=== PATIENT | female | born 1960 | race Caucasian/White ===

== ENCOUNTER 2020-12-02 15:30 | Outpatient (REF) | payer OTHER, SELFPAY ==
--- NOTE | ~2020-12-02 | MM_ITS ---
EXAMINATION: MM SCREENING DIGITAL BREAST TOMOSYNTHESIS, BILATERAL CLINICAL INFORMATION: Screening. Asymptomatic. The lifetime risk of breast cancer based on the Tyrer-Cuzick Model is 9.7%. COMPARISON: Mammography: November 27, 2019 and studies dating back to November 27, 2013 TECHNIQUE: Digital breast tomosynthesis is performed in both the craniocaudal and mediolateral oblique views along with computer-aided detection (CAD). Synthesized 2D images are generated from the tomosynthesis. FINDINGS: There are scattered areas of fibroglandular density (ACR BI-RADS breast composition Category b). There are no significant masses, abnormal calcifications, or other abnormalities. Stable region of asymmetric breast parenchyma seen upper outer aspect of the right breast. MM/MM tomosynthesis screening BI IMPRESSION: There are no significant changes from prior study. ASSESSMENT: BI-RADS 1: Negative RECOMMENDATION: Routine annual mammography screening. This patient's information was entered into a reminder system with a target due date for their next mammogram.
== END 2020-12-02 15:31 | disposition home or self-care (01) ==
LOC: HO.MAMMO 15:30
PROVIDERS: PCP Internal Medicine; Visit Provider Internal Medicine
DX: Z12.31 Encounter for screening mammogram for malignant neoplasm of breast (principal)
CPT/HCPCS: 77063; 77067

== ENCOUNTER 2022-07-11 14:07 | Outpatient (REF) | payer OTHER, SELFPAY ==
--- NOTE | ~2022-07-11 | MM_ITS ---
EXAMINATION: MM SCREENING DIGITAL BREAST TOMOSYNTHESIS, BILATERAL CLINICAL INFORMATION: Screening. Asymptomatic. The lifetime risk of breast cancer based on the Tyrer-Cuzick Model is 10%. COMPARISON: Mammography: 12/02/2020, 11/27/2019, 11/21/2018; outside mammography 12/20/1915 ([facility]) TECHNIQUE: Digital breast tomosynthesis is performed in both the craniocaudal and mediolateral oblique views along with computer-aided detection (CAD). Synthesized 2D images are generated from the tomosynthesis. FINDINGS: There are scattered areas of fibroglandular density (ACR BI-RADS breast composition Category b). Parenchymal pattern is similar to prior studies. Parenchymal asymmetry mid upper outer right breast is stable. There is no developing density or interval mass or architectural abnormality. No abnormal calcifications. There is an intramammary node again seen posterior upper outer right breast. Axillary nodes are stable with chronic calcifications similar to prior studies. MM/MM tomosynthesis screening BI IMPRESSION: No significant changes from prior studies. ASSESSMENT: BI-RADS 2: Benign RECOMMENDATION: Routine annual mammography screening. This patient's information was entered into a reminder system with a target due date for their next mammogram.
== END 2022-07-11 14:08 | disposition home or self-care (01) ==
LOC: HO.MAMMO 14:07
PROVIDERS: Absent Provider Internal Medicine; Visit Provider Internal Medicine
DX: Z12.31 Encounter for screening mammogram for malignant neoplasm of breast (principal)
CPT/HCPCS: 77063; 77067

== ENCOUNTER 2024-12-30 13:57 | Outpatient (REF) | payer OTHER, SELFPAY ==
--- OUTSIDE RECORDS SUMMARY | 2024-12-30 15:44 | XMS_ITS | Patient Health Record ---
Author Organization [facility] Address [address] [place] [address] Care Team Providers Care Teaching Artist Name Role Phone Huy Jorge MD Primary Care Provider UnavailJam Davidson Jr Reason For Referral No Information Medications Medication SIG (Take, Route, Frequency, Duration) Notes Start Date End Date Status Folic Acid Active Lisinopril Active Methotrexate 2.5 MG Orally 4 a wees Active Humira as directed Subcutaneous Active Atorvastatin Calcium 1 tablet Orally Once a day Active Colyte with Flavor Packs 240 GM As directed Orally Over the specified time. for 1 day(s) 02/06/2019 Active buPROPion HCl Active Advil 200 MG 1 capsule with food or milk as needed Orally as needed Active Wellbutrin Active Immunizations Vaccine Route Administration Date Status Comme nts Influenza Unknown 02/06/2019 Refused Problems Problem Type SNOMED Code ICD Code Onset Dates Problem Status W/U Status Risk Notes Problem 725586920 Colon cancer screening (Z12.11) Active confirmed Problem 168281123 medical terminologist (current) use of non-steroidal anti-inflammatorie s (NSAID) (Z79.1) Active confirmed Problem 702075910 Encounter for other preprocedural examination (Z01.818) Active confirmed Plan Of Treatment Future Test Test Name Order Date COLONOSCOPY 02/29/2012 COLONOSCOPY 02/06/2019 Next Appt Details Provider Name:Jam carlson Jr, 03/19/2025 10:40:00 AM, [address], [address], [place], [address], Insurance Providers Payer Name Payer Address Payer Phone Subscriber Number Group Number Insured Name Patient Relationship to Insured Coverage Start Date Coverage End Date [employer] [address] [address] [place] [address] [id number] JAYY KOLB Self - patient is the insured Medical (General) History Medical History History ICD Code Rheumatoid arthritis Hypertension elevated Cholesterol Reflux Disease colonoscopy 04/13/12, tubular adenoma x1. Followup in 5 years anxiety/depression Surgical History Surgery Date(Month/Year)
== END 2024-12-30 13:58 | disposition home or self-care (01) ==
LOC: HO.MAMMO 13:57
PROVIDERS: Absent Provider Internal Medicine; PCP Internal Medicine; Referring Provider Internal Medicine; Visit Provider Internal Medicine
DX: Z12.31 Encounter for screening mammogram for malignant neoplasm of breast (principal)
CPT/HCPCS: 77063; 77067

== ENCOUNTER → 2024-12-30 14:15 | Outpatient (BNV) | payer OTHER, SELFPAY | PROVIDERS: Absent Provider Internal Medicine; PCP Internal Medicine; Referring Provider Internal Medicine; Visit Provider Internal Medicine | DX: Z12.31 Encounter for screening mammogram for malignant neoplasm of breast (principal) | CPT/HCPCS: 77063; 77067 ==

== ENCOUNTER 2025-04-15 07:13 | Day surgery (SDC) | payer MEDICARE, OTHER, SELFPAY ==
--- OUTSIDE RECORDS SUMMARY | 2025-03-19 06:40 | XMS_ITS ---
Author Organization [facility] Address [address] [place] [id number] Care Team Providers Care Dry Heat Room Attendant Name Role Phone Huy Jorge MD Primary Care Provider UnavailJam Davidson Jr Unavailable [phone] Allergies No Known Allergies REASON FOR VISIT Patient presents today for a SCREENING COLON, RELUX Medications Medication SIG (Take, Route, Fr equency, Duration) Notes Start Date End Date Status buPROPion HCl Active Humira as directed Subcutaneous Active Wellbutrin Active Folic Acid Active Methotrexate 2.5 MG Orally 4 a wees Active Immunizations Vaccine Route Administration Date Status Comme nts Influenza Unknown 03/19/2025 Refused Vital Signs Temperature 95.9 degrees Fahrenheit 03/19/20 25 Blood pressure systolic 001 mm Hg 03/19/20 25 Blood pressure diastolic 01 mm Hg 025 Height 62 in 03/19/2025 Weight 210.2 lbs 03/19/2025 BMI 38.44 kg/m2 03/19/2025 Encounters Encounter Location Date Provider Diagnosis [facility] [address] [place] [id number] 03/19/2025 Jam Vasquez Jr Colon cancer screening Z12.11 Assessments Encounter Date Diagnosis (ICD Code) Assessment Notes Treatment Notes Treatment Clinical Notes Section Notes 03/19/2025 Colon cancer screening (ICD-10 - Z12.11) Plan Of Treatment Future Test Test Name Order Date COLONOSCOPY 03/19/2025 Next Appt Details Provider Name:Jam carlson Jr, 04/15/2025 08:20:00 AM, [address] [place] [address], [id number], Progress Notes * ODETTE KOLBOB: 1 (64 yo F)Acc No.[id number]:03/19/2025 Progress Notes Patient: JAYY JAMIL Provider: Mary Ellen Vasquez MD :1960 A ge:64 Y S ex:Female Date:03/19/2025 Address:[address] [place], [place] [id number] Pcp:Huy Jorge MD Subjective: * Chief Complaints: * 1 . Patient presents today for a SCREENING COLON, RELUX. * Medical History: R heumatoid arthritis, Hypertension, elevated Cholesterol, Reflux Disease, colonoscopy 04/13/12, tubular adenoma x1. Followup in 5 years, Anxiety/depression. * Family History: F ather: . M other: 88 yrs, diagnosed with HTN (hypertension). no known hx of colon cancer polyps. No family history of liver cancer. * Social History: T obacco Use: T obacco Use/Smoking A re you a: former smoker , How long has it been since you last smoked?: > 10 years. D rugs/Alcohol: A lcohol Screen P oints: 0, Interpretation: Negative. M iscellaneous: M arital status: . Occupation: Home. * Medications: T aking Folic Acid , Taking Methotrexate 2.5 MG Tablet Orally 4 a wees , Taking Humira as directed Subcutaneous , Taking buPROPion HCl , Taking Wellbutrin , Discontinued Lisinopril , Discontinued Atorvastatin Calcium 1 tablet Orally Once a day , Discontinued Advil 200 MG Capsule 1 capsule with food or milk as needed Orally as needed , Medication List reviewed and reconciled with the patient * Allergies: N .K.D.A. Objective: * Vitals: W t: 210.2 lbs, Ht: 62 in, BMI:38.44Index, BP: 001/01 mm Hg, Temp: 95.9, Wt-k.35. Assessment: * Assessment: 1. C olon cancer screening - Z12.11 (Primary) Plan: * Treatment: * Immunizations: Influenza (Not administered - Refused: Patient decision) * Preventive Medicine: Counseling: C are goal follow-up plan: A birdie Normal BMI Follow-up D ietary management education, guidance, and counseling, B LA management provided Y es. * * The named appointment provid er may or may not be the originator of this progress note, and it is not deemed complete until electronically signed by the appointment provider. Sign off status: Pending * Provider: Mary Ellen Vasquez MD Date: 03/19/2025 Generated for Elizabeth francis/Ashwini/Skylaritting on: 03/25/2025 02:28 PM EDT
[2025-04-11 09:29] VITALS: BMI 38.4
--- NOTE | 2025-04-14 08:51 | HO.ANESPROP2 ---
Documented by User: Dai Clark NP 04/14/25 08:51 HPI - Anesthesia Eval Consult details Narrative: 64yo F for Colonoscopy [facility] Past Medical History Medical History (Updated 04/11/25 @ 09:31 by Karen Conteh RN) Anxiety Depression Elevated cholesterol HTN (hypertension) Rheumatoid arthritis GERD (gastroesophageal reflux disease) Surgical History Surgical History (Updated 04/11/25 @ 09:31 by Karen Conteh RN) H/O colonoscopy Social History Social History (Updated 04/11/25 @ 09:32 by Karen Conteh RN) Household Members: Spouse Patient Tobacco Use Status: Former Tobacco user Tobacco use type: Cigarette Advance Directives: No Advance Directives Information Provided: Yes Meds Allergies Allergy/AdvReac Type Severity Reaction Status Date / Time No Known Allergies Allergy Verified 04/11/25 09:32 Home Medications ?Medication ?Instructions ?Recorded ?Confirmed ?Last Taken ?Type adalimumab 40 mg/0.4 mL 40 mg subcut Q2W 04/11/25 04/11/25 Unknown History subcutaneous pen kit (Humira(CF) Pen) bupropion HCl 300 mg 24 hr tablet, 300 mg PO DAILY 04/11/25 04/11/25 Unknown History extended release folic acid 1 mg tablet 1 mg PO BID 04/11/25 04/11/25 Unknown History methotrexate sodium 2.5 mg tablet 20 mg PO QWEEK 04/11/25 04/11/25 Unknown History sertraline 100 mg tablet 100 mg PO DAILY 04/11/25 04/11/25 Unknown History Exam Height,Weight and Vital Signs: Height 5 ft 2 in Weight 95.345 kg Assessment and Plan Assessment Anesthesia Assessment: Chart Reviewed Documented by User: Tommy Zimmerman MD 04/15/25 07:31 [facility] Past Medical History Medical History (Updated 04/11/25 @ 09:31 by Karen Conteh RN) Anxiety Depression Elevated cholesterol HTN (hypertension) Rheumatoid arthritis GERD (gastroesophageal reflux disease) Cognitive capacity: normal Functional capacity: independent ambulation Patient : No Family History Family history of problems with anesthesia: No Surgical History Surgical History (Updated 04/11/25 @ 09:31 by Karen Conteh RN) H/O colonoscopy History of Problems with Anesthesia: No Social History Social History (Updated 04/11/25 @ 09:32 by Karen Conteh RN) Household Members: Spouse Patient Tobacco Use Status: Former Tobacco user Tobacco use type: Cigarette Advance Directives: No Advance Directives Information Provided: Yes Meds Allergies Allergy/AdvReac Type Severity Reaction Status Date / Time No Known Allergies Allergy Verified 04/11/25 09:32 Home Medications ?Medication ?Instructions ?Recorded ?Confirmed ?Last Taken ?Type adalimumab 40 mg/0.4 mL 40 mg subcut Q2W 04/11/25 04/11/25 Unknown History subcutaneous pen kit (Humira(CF) Pen) bupropion HCl 300 mg 24 hr tablet, 300 mg PO DAILY 04/11/25 04/11/25 Unknown History extended release folic acid 1 mg tablet 1 mg PO BID 04/11/25 04/11/25 Unknown History methotrexate sodium 2.5 mg tablet 20 mg PO QWEEK 04/11/25 04/11/25 Unknown History sertraline 100 mg tablet 100 mg PO DAILY 04/11/25 04/11/25 Unknown History Exam Exam Date and Time: 04/15/25 Airway Mallampati Class: II TM Dist: >3cm Neck ROM: Full Loose/Missing/Broken Teeth: No Heart: rrr Lungs: cta Other: normal Assessment and Plan Final Anesthetic Review Family History of Problems with Anesthesia: No History of Problems with Anesthesia: No NPO: Yes ASA Class: II Final Preanesthetic Review: No Changes in Pt Med Stat, Meds/Allgs Chart Reviewed, Consent Obtained/Reviewed and Anes Risks/Benef Reviewed Patient Risk: Low Procedure Risk: Low Anesthetic Plan Anesthetic Plan: MAC: Disposition: Standard PACU
[2025-04-15 07:32] VITALS: BP 146/95; PULSE 92; RESP 16; TEMP 36.2; O2SAT 96; BMI 37.9
--- NOTE | 2025-04-15 07:35 | MHC.SHP ---
Pre-Procedural Eval Section A - 24 Hr Update-Section A only Date of Service: 04/15/25 The patient is an INPATIENT: No Changes since office visit: No Cold of Flu in the past 2 weeks, No New Medical Problems, No Changes in Medication and No Patient answered all questions The patient has been examined within 24 hours of the surgical procedure. The History & Physical has been completed within 30 days and I have reviewed it.: Yes Section B - Complete if H&P > 30 days Chief Complaint: screening Allergies: Allergies Allergy/AdvReac Type Severity Reaction Status Date / Time No Known Allergies Allergy Verified 04/15/25 07:32 Plan I have reviewed the history and physical and performed a pertinent physical examination on my patient. No changes have occurred unless specified. Time Spent With Patient Time: Total time managing care of this patient today ____ minutes.
--- NOTE | 2025-04-15 07:39 | PC.NURSE ---
Patient arrived with poison mahendra present on body (bilateral arms, flank, legs, patches on chest). Dr. Vasquez, Dr. Zimmerman, ALICE, and Julianna Martinez made aware. Okay to proceed at this time.
[2025-04-15] MEDS: Lactated Ringers 1,000 ML 100 ML IVCONT (07:41)
[2025-04-15 08:07] VITALS: BP 147/88; PULSE 77; RESP 12; TEMP 36.1; O2SAT 98
[2025-04-15 08:22] VITALS: BP 156/93; PULSE 80; RESP 20; TEMP 36.1; O2SAT 98
--- NOTE | 2025-04-15 10:01 | OP_ITS ---
DATE OF SERVICE: 04/15/2025 SURGEON: Jam Vasquez MD INDICATIONS: Colon cancer screening and prior history of adenomatous colon polyps. PREOPERATIVE DIAGNOSIS: POSTOPERATIVE DIAGNOSIS: PROCEDURE PERFORMED: Colonoscopy to the terminal ileum with biopsy. ESTIMATED BLOOD LOSS: COMPLICATIONS: ANESTHESIA: Medications; monitored anesthesia care. ASSISTANTS: SPECIMENS: DESCRIPTION OF PROCEDURE: A history and physical performed. The risks and benefits of the procedure were explained to the patient and informed consent was obtained. The patient was placed in the left lateral decubitus position. A digital rectal exam was performed and was found to be normal. The Olympus pediatric video colonoscope was introduced into the rectum and advanced to the cecum. The cecum was identified by transillumination, palpation, and identification of ileocecal valve. Examination was performed. The scope was removed. She tolerated the procedure well and was taken to recovery room in stable condition. FINDINGS: The terminal ileum was examined and appeared normal. The visualized colonic mucosa was normal. The quality of prep was excellent. A single polyp measuring less than 5 mm was identified in the rectum. This was removed with biopsy forceps. No other polyps were identified. Retroflexed examination showed moderate-sized internal hemorrhoids. IMPRESSION: Colon polyp. RECOMMENDATION: Follow up the biopsy results. MD NANCY East/MODL / [id number]
== END 2025-04-15 08:49 | disposition home or self-care (01) ==
PROVIDERS: PCP Internal Medicine; Visit Provider Internal Medicine Gastroenterology
PROC: 0DJD8ZZ Inspection of Lower Intestinal Tract, Via Natural or Artificial Opening Endoscopic (ICD-10-PCS; CPT 45378; principal; 2025-04-15 08:20)
DX: Z12.11 Encounter for screening for malignant neoplasm of colon (principal); Z86.0101 Personal history of adenomatous and serrated colon polyps; K62.1 Rectal polyp; K64.8 Other hemorrhoids; I10 Essential (primary) hypertension; E78.00 Pure hypercholesterolemia, unspecified; M06.9 Rheumatoid arthritis, unspecified; K21.9 Gastro-esophageal reflux disease without esophagitis; R14.3 Flatulence; F41.9 Anxiety disorder, unspecified; Z79.620 Long term (current) use of immunosuppressive biologic; Z79.899 Other long term (current) drug therapy; Z87.891 Personal history of nicotine dependence
CPT/HCPCS: 45380; 88305; J2704